=== PATIENT | male | born 1980 | race Caucasian/White ===

== ENCOUNTER 2023-03-01 15:00 | Outpatient (RCR) | payer OTHER, SELFPAY ==
--- NOTE | 2023-01-21 17:14 | HP.PTEVAL_ITS ---
Patient's Visit Information RAFAELA LUI is a 42 year old M referred to Physical Therapy by ALAN Bates with a diagnosis of PAIN RIGHT KNEE ,CHONDOMALACIA PATELLA RIGHT ,SPRAIN MCL OF RIGHT KNEE. Date of Evaluation: 01/21/23 Physical Therapist: Trever Yi, PT, Cert MDT, OCS - Visit Plan Frequency: 2x /Week Duration: 4 Weeks Plan: PT INTERVTIONS STRENGTHENING QUADS/HAMS/HIP- OKA/CKA ,FLEXABLITY ,FUNCTIONAL STRENGTHNEING AND MODALITIES NEEDED - Subjective This 42 y/o male presents to physical therapy with right knee. Patient noticed pain many years ago ,most recently 2013 notice patella popping . Symptoms worse when running on treadmill progressively worse then evening swelling was noticeable. Seen DR prescribed medication meloxicam and provide hinge donjoy which has helped. Patient was off work ~ 1 week which makes pain less. Aggravating standing ,kneeling ,squatting ,running .Alleviating medication and brace. Denies paresthesia/tingling . Any activity without brace would make these symptoms worse. Pain can affects sleeping. Patient condition affects QOL and function. Patient goal to decrease to pain. SOCIAL: seperated. VOCATION: [employer] - Pain Right Back Pain Intensity (Out of 10): 1 Pain Intensity Range: 10 - Objective POSTURE: pes planus ,patella alt with calcaneal valgus. PALAPTION: unremarkable. NEURO: intact. AROM: 0-135 degrees. FLEXABLITY: hamstrings min tight ,quadricep min/mod tight. QUAD FIRING: windshield. MMT: quads/hams 4/5 ,hip flexion 4/5 ,peak force hip abduction 23.4 - Special Tests R Knee Milady - Meniscus: Negative R Knee Michael - ACL: Negative R Knee Anterior Drawer - ACL: Negative R Knee Valgus - MCL: Negative R Knee Varus - LCL: Negative R Knee Patellar Apprehension - PFS: Positive R Knee Patellar Grind - PFS: Negative Comments: 1+ laxity knee - Balance/Special Test Scores Lower Extremity Functional Score: 46 - Goals Goal 1:: Patient to be I with HEP Goal Time Frame: 4-6 Weeks Goal 2:: Patient to demonstrate 50% improvement with improve function with less pain Goal Time Frame: 4-6 Weeks Goal 3:: Patient to improve LFES score by 5 points or> to improve QOL and function Goal Time Frame: 4-6 Weeks Goal 4:: Patient to improve peak force of hip by 10 to improve function with less pain Goal Time Frame: 4-6 Weeks Goal 5:: Patient be able to perform job demands/housework tasks with min limiations Goal Time Frame: 4-6 Weeks - Rehabilitation Potential Physical Therapy Diagnosis: This patient has right knee pain with patellofemoral syndrome with hip weakness ,pain with activity with brace thus benefit from skilled PT Rehabilitation Potential: Good - Anticipated Interventions Patient/Client Instruction: Educate patient on: Condition, Plan of Care For the Purpose of:: To decrease pain, To increase ROM, To improve muscle performance and motor function, To improve ability to perform ADL's, To increase tolerance to activity/condition/position, To improve ability of physical actions for home/community/work/leisure, To improve gait and locomotor functions, To improve health of tissue, To decrease soft tissue restriction, To increase flexibility/ROM, To improve endurance, To reduce risk of recurrence Therapeutic Exercise to Include: Strength training, Endurance training, Balance training, Postural training, Flexibilty training, Active ROM Comment: HIP/QUADS/HAMS For the Purpose of:: To decrease pain, To improve nutrient delivery to tissue, To improve muscle performance and motor function, To increase tolerance to activity/condition/position, To improve ability of physical actions for home/community/work/leisure, To improve health of tissue, To decrease soft tissue restriction, To increase flexibility/ROM, To improve endurance, To reduce risk of recurrence, To improve tolerance to ADL's TENS: Yes IF ES: Yes Cryotherapy (ice pack, ice massage): Yes Thermo therapy (hot pack): Yes Ultrasound (thermal/non thermal): Yes For the Purpose of:: To decrease pain, To increase ROM, To improve nutrient delivery to tissue, To increase oxygenation perfusion, To improve health of tissue, To decrease soft tissue restriction Thank you for the opportunity to evaluate your patient. For Medicare and Medicare HMO plans, please review the plan of care and approve it. It will need to be FAXED BACK to us at [phone] for Medicare purposes. For Medicare only, by signing this I certify the plan of care. Please let me know if there are questions or concerns regarding this plan of care. Physician Signature: Date:
--- NOTE | 2023-03-01 15:31 | HP.PTDCSUM ---
It has been my pleasure to treat RAFAELA LUI referred by ALAN Bates, with the diagnosis of PAIN RIGHT KNEE ,CHONDOMALACIA PATELLA RIGHT ,SPRAIN MCL OF RIGHT KNEE for a total of 7 visit(s). Discharge Date: 03/01/23 Please see the following information for a summary of their discharge status. Subjective: Doing well .. Have been wearing. Patient states able to manage with ex's'. Plan to workout on own Right Back Pain Intensity (Out of 10): 0 % Improvement: 70 Objective/Function: POSTURE: pes planus ,patella alt with calcaneal valgus. PALAPTION: unremarkable. NEURO: intact. AROM: 0-135 degrees. FLEXABLITY: hamstrings min tight ,quadricep mIN tight. QUAD FIRING: windshield improved . MMT: quads/hams 4/5 ,hip flexion 4/5 ,peak force hip abduction 33.4 LEFT,RIGHT 48.6 Goal 1:: Patient to be I with HEP Goal Progress: Goal Met Goal 2:: Patient to demonstrate 50% improvement with improve function with less pain Goal Progress: Goal Met Goal 3:: Patient to improve LFES score by 5 points or> to improve QOL and function Goal Progress: Goal Met Goal 4:: Patient to improve peak force of hip by 10 to improve function with less pain Goal 5:: Patient be able to perform job demands/housework tasks with min limiations Goal Progress: Goal Met Plan: D/C Discharge Comments: HEP If there are questions or concerns regarding this patient's physical therapy, please feel free to call me at [phone]. Thank you for the referral of this patient. Sincerely, Trever Yi, PT, Cert MDT, OCS Balance/Gait/Functional tests - Balance/Special Test Scores Lower Extremity Functional Score: 68
== END 2023-03-01 19:00 | disposition home or self-care (01) ==
LOC: PT 15:00
PROVIDERS: PCP Physician Assistant
DX: S83.411D Sprain of medial collateral ligament of right knee, subsequent encounter (principal); M22.41 Chondromalacia patellae, right knee
CPT/HCPCS: 97110; 97162; 97530